=== PATIENT | female | born 1985 | race Caucasian/White ===

== ENCOUNTER 2016-12-20 04:43 | Emergency (ER) | payer BC, OTHER ==
[~2016-12-20] VITALS: Ht 152.4 cm; Wt 63.0 kg
[~2016-12-20 04:43] MED LIST: BENA25TA8 PO; PRED20 PO
[2016-12-20 04:45] VITALS: BP 126/77; PULSE 97; RESP 16; TEMP 97.7; O2SAT 100
--- NOTE | 2016-12-20 05:10 | PD ---
HPI Chief Complaint: Abdominal Pain Time Seen by Provider: 04:53 Travel History International Travel<30 days: No Contact w/Intl Traveler<30days: No Traveled to known affect area: No History of Present Illness HPI The patient is a 31 year old female who presents to the [facility] emergency department with a history of abdominal pain in the left lower quadrant that she reports began approximately 2 months ago. She reports that the pain has been coming and going, however a week ago it became more constant and more severe. She reports that the pain is like a dull aching sensation. She reports that it is worse when she goes to sleep at night. She reports that it woke her up from sound sleep prior to arrival. She reports that her menstrual cycles have been regular. She reports that her last menstrual cycle was November 23. She reports that her last gynecologic exam was one year ago. She reports that she recently moved to the area. She reports that she has a history of kidney stones, however this pain is different. She denies having any dysuria, hematuria, urinary urgency, or frequency. She denies having any vaginal discharge. She reports that she has been moving her bowels regularly. She denies having any blood in her stool. The patient reports that she has had worsening acid reflux over the last year. She reports that Tums has not been helping. The patient denies any recent fevers, cough, congestion, neck pain, chest pain, shortness of breath, vomiting, diarrhea, or neurologic symptoms. L PFS Past Medical History Narrative Medical The patient's past medical history is significant for kidney stones. Diminished Hearing: No ?: Not LMP: 11/23/16 : 1 Para: 1 Past Surgical History Narrative Surgical The patient's past surgical history is reportedly none. Social History Alcohol Use: No Tobacco Use: No Substance Use: No Allergies-Medications (Allergen,Severity, Reaction): Coded Allergies: No Known Allergies (Unverified , 12/20/16) Reported Meds & Prescriptions Reported Meds & Active Scripts Active No Active Prescriptions or Reported Medications Review of Systems Except as stated in HPI: all other systems reviewed are Neg General / Constitutional: No: Fever Eyes: No: Visual changes HENT: No: Headaches Cardiovascular: No: Chest Pain or Discomfort Respiratory: No: Shortness of Breath Gastrointestinal: Positive: Abdominal Pain, Indigestion, No: Nausea, Vomiting , Diarrhea, Hematochezia, Constipation, Changes in Bowel Habits, Loss of Appetite Genitourinary: Positive: Pelvic Pain, No: Urgency, Frequency, Dysuria, Hematuria, Flank Pain, Discharge, Vaginal Bleeding Musculoskeletal: No: Pain Skin: No Rash Neurologic: No: Weakness Psychiatric: No: Depression Endocrine: No: Polydipsia Hematologic/Lymphatic: No: Easy Bruising Physical Exam Narrative General: The patient is a well-developed well-nourished female in no acute distress. Head and Neck exam: Head is normocephalic atraumatic. Eyes: EOMI, pupils are equal round and reactive to light. Nose: Midline septum with pink mucous membranes Mouth: Dentition unremarkable. Moist mucus membranes. Posterior oropharynx is not erythematous. No tonsillar hypertrophy. Uvula midline. Airway patent. Neck: No palpable lymphadenopathy. No nuchal rigidity. No thyromegaly. Cardiovascular: Regular rate and rhythm without murmurs, gallops, or rubs. Lungs: Clear to auscultation bilaterally. No wheezes, rhonchi, or rales. Abdomen: Soft, with tenderness on palpation in the left upper and left lower quadrant of the abdomen, no tenderness on palpation of McBurney's point. No tenderness on palpation of the right upper or right lower quadrant of the abdomen. No guarding , rebound, or rigidity. Negative [place] sign. Normal bowel sounds are audible. Extremities: No clubbing, cyanosis, or edema. No calf tenderness on palpation. Back: The patient has left-sided CVA tenderness on palpation. The tenderness on palpation of the right. Neurologic Exam: Grossly nonfocal. Skin Exam: No rash noted. Intact skin that is warm and dry. Gynecologic exam: The patient was placed in the dorsal lithotomy position. Her external genitalia were examined. She had no evidence of rash or lesions. The speculum was placed into her vagina and the cervix was identified. She had a brown discharge noted that appear to be older blood. No cervical friability. On Bimanual exam: she has no cervical motion tenderness. No adnexal tenderness or prominence noted on palpation. No uterine tenderness or enlargement noted on palpation. Data Data Last Documented VS Vital Signs Date Time Temp Pulse Resp B/P Pulse Ox O2 Delivery O2 Flow Rate FiO2 12/20/16 06:21 16 12/20/16 05:15 99 Room Air 12/20/16 04:45 97.7 97 126/77 Orders Complete Blood Count With Diff (12/20/16 04:56) Comprehensive Metabolic Panel (12/20/16 04:56) C-Reactive Protein (Crp) (12/20/16 04:56) Lipase (12/20/16 04:56) Urinalysis - C+S If Indicated (12/20/16 04:56) Iv Access Insert/Monitor (12/20/16 04:56) Ecg Monitoring (12/20/16 04:56) Oximetry (12/20/16 04:56) Ed Urine Pregnancytest Poc (12/20/16 04:56) Gc And Chlamydia Pcr (12/20/16 04:56) Wet Prep Profile (12/20/16 04:56) Ct Abd/Pel W Iv Contrast(Rout) (12/20/16 05:23) Sodium Chlor 0.9% 1000 Ml Inj (Ns 1000 M (12/20/16 05:30) Ketorolac Inj (Toradol Inj) (12/20/16 05:30) Urine Culture (12/20/16 05:10) Iohexol 350 Inj (Omnipaque 350 Inj) (12/20/16 06:35) Ciprofloxacin (Cipro) (12/20/16 07:30) Metronidazole 500 Mg Inj (Flagyl 500 Mg (12/20/16 07:30) Labs Laboratory Tests Test 12/20/16 12/20/16 12/20/16 05:10 05:15 05:30 Urine Color YELLOW Urine Turbidity HAZY Urine pH 5.0 Urine Specific [place] 1.018 Urine Protein NEG mg/dL Urine Glucose (UA) NEG mg/dL Urine Ketones NEG mg/dL Urine Occult Blood MOD Urine Nitrite NEG Urine Bilirubin NEG Urine Urobilinogen LESS THAN 2.0 MG/DL Urine Leukocyte Esterase SMALL Urine RBC 6 /hpf Urine WBC 3 /hpf Urine Squamous Epithelial 3 /hpf Cells Urine Transitional Epithelial <1 /hpf Cells Urine Bacteria MOD /hpf Urine Mucus FEW /lpf Microscopic Urinalysis Comment CULTURE INDICATED White Blood Count 8.8 TH/MM3 Red Blood Count 4.53 MIL/MM3 Hemoglobin 13.7 GM/DL Hematocrit 40.8 % Mean Corpuscular Volume 90.1 FL Mean Corpuscular Hemoglobin 30.2 PG Mean Corpuscular Hemoglobin 33.6 % Concent Red Cell Distribution Width 13.6 % Platelet Count 277 TH/MM3 Mean Platelet Volume 8.4 FL Neutrophils (%) (Auto) 65.7 % Lymphocytes (%) (Auto) 25.1 % Monocytes (%) (Auto) 6.7 % Eosinophils (%) (Auto) 2.0 % Basophils (%) (Auto) 0.5 % Neutrophils # (Auto) 5.8 TH/MM3 Lymphocytes # (Auto) 2.2 TH/MM3 Monocytes # (Auto) 0.6 TH/MM3 Eosinophils # (Auto) 0.2 TH/MM3 Basophils # (Auto) 0.0 TH/MM3 CBC Comment DIFF FINAL Differential Comment Sodium Level 141 MEQ/L Potassium Level 3.7 MEQ/L Chloride Level 106 MEQ/L Carbon Dioxide Level 26.0 MEQ/L Anion Gap 9 MEQ/L Blood Urea Nitrogen 10 MG/DL Creatinine 0.88 MG/DL Estimat Glomerular Filtration 75 ML/MIN Rate Random Glucose 112 MG/DL Calcium Level 9.0 MG/DL Total Bilirubin 0.4 MG/DL Aspartate Amino Transf 16 U/L (AST/SGOT) Alanine Aminotransferase 20 U/L (ALT/SGPT) Alkaline Phosphatase 93 U/L C-Reactive Protein 1.10 MG/DL Total Protein 7.9 GM/DL Albumin 3.8 GM/DL Lipase 171 U/L Clue Cells (Wet Prep) NONE SEEN Vaginal Trichomonas (Wet Prep) NONE SEEN Vaginal Yeast (Wet Prep) NONE SEEN MDM Medical Decision Making Medical Screen Exam Complete: Yes Emergency Medical Condition: Yes Medical Record Reviewed: Yes Interpretation(s) Last Impressions Abdomen/Pelvis CT 12/20/16 0523 Signed Impressions: Service Date/Time: Tuesday, December 20, 2016 06:18 - CONCLUSION: 1. Inflammatory process adjacent to the distal descending colon. This likely relates to epiploic appendigitis. 2. 2 tiny low-density lesions involving the liver. These are to small to accurate characterize with CT but likely relate to small cysts. Todd New Jr., MD Differential Diagnosis Kidney stone, versus pyelonephritis, versus ovarian cyst, versus diverticulitis , versus colitis Narrative Course During the course of the patients emergency department visit, the patients history, examination, and differential diagnosis were reviewed with the patient. The patient had IV access obtained and blood work sent for analysis. The patient was placed on a monitor technician with oximetry and blood pressure monitoring. A [id number] test was done and negative. A CT scan of the abdomen and pelvis has been ordered. The patient was provided normal saline 1 L IV fluid bolus, Toradol 15 mg IV. The patients laboratory studies were reviewed and remarkable for a CBC that is within normal limits. CMP is remarkable for glucose 112, C-reactive protein 1.10, lipase 171, urinalysis shows moderate occult blood, rbc's 6, small leukocyte esterase with wbc's 3, moderate bacteria, culture indicated. The patient was given ciprofloxacin 500 mg by mouth 1. Radiology studies were reviewed and remarkable for a CT scan of the abdomen and pelvis that shows an inflammatory process adjacent to the distal descending colon this likely represents an epiploic appendagitis. The patient had Flagyl added onto her medication regimen. The patient will be discharged home with a prescription for Cipro and Flagyl. The patient was instructed regarding the importance of following up with her primary care physician for reexamination in the next 2 days. The patient is resting comfortably and feels better, is alert and in no distress. The patients results and examination findings were discussed with the patient. The repeat examination is unremarkable and benign. The history, exam, diagnostic testing, and current condition do not suggest any significant pathology to warrant further testing, continued ED treatment, admission, or surgical evaluation at this point. The vital signs have been stable. The patient does not have uncontrollable pain, intractable vomiting, or other significant symptoms. The patient's condition is stable and appropriate for discharge. The patient will pursue further outpatient evaluation with a primary care physician or other designated or consulting physician as indicated in the discharge instructions. The patient expressed understanding and was agreeable with this plan. Diagnosis Primary Impression: Abdominal pain Qualified Code: R10.32 - Left lower quadrant pain Additional Impressions: Epiploic appendagitis Urinary tract infection Qualified Code: N39.0 - Urinary tract infection without hematuria, site unspecified Referrals: Primary Care Physician 2 days Patient Instructions: Abdominal Pain (ED), General Instructions, Urinary Tract Infection in Women (ED) Med/Other Pt SpecificInfo: Prescription(s) given Scripts Ciprofloxacin (Cipro)500 Mg [id number] Mg PO BID 10 Days Ref 0 Prov:Danielle Chairez MD 12/20/16 Metronidazole (Flagyl)500 Mg [id number] Mg PO TID #20 TAB Ref 0 Prov:Danielle Chairez MD 12/20/16 Ibuprofen 600 Mg [id number] Mg PO Q8HR PRN (PAIN) #9 TAB Ref 0 Prov:Danielle Chairez MD 12/20/16 Disposition: 01 DISCHARGE HOME Condition: Stable Danielle Chairez MD Dec 20, 2016 05:10
[2016-12-20 05:15] VITALS: RESP 16; O2SAT 99
[2016-12-20 05:25] LABS: AUTOMATED NEUTROPHIL # 5.8 TH/MM3 (1.8-7.7); BASOPHIL % 0.5 % (0.0-2.0); EOSINOPHIL # 0.2 TH/MM3 (0-0.4); HEMATOCRIT 40.8 % (35.0-46.0); HEMO FLAGS DIFF FINAL; LYMPH % 25.1 % (9.0-44.0); LYMPHOCYTE # 2.2 TH/MM3 (1.0-4.8); MEAN CELL VOLUME 90.1 FL (80.0-100.0); MEAN CORPUSCULAR HEMOGLOBIN 30.2 PG (27.0-34.0); MEAN CORPUSCULAR HGB CONC 33.6 % (32.0-36.0); MONO % 6.7 % (0.0-8.0); NEUT % 65.7 % (16.0-70.0); PLATELET COUNT 277 TH/MM3 (150-450); RED BLOOD COUNT 4.53 MIL/MM3 (4.00-5.30); RED CELL DISTRIBUTION WIDTH 13.6 % (11.6-17.2); WHITE BLOOD COUNT 8.8 TH/MM3 (4.0-11.0)
[2016-12-20] MEDS ORDERED: SODIUM CHLOR 0.9% 1000 ML INJ 1,000 ML IV ONE (05:30)
[2016-12-20] MEDS ORDERED: KETOROLAC TROMETHAMINE 30 MG/ML (IVP) VIAL IV PUSH ONE (05:30)
[2016-12-20 05:33] LABS: BACTERIA, URINE MOD /hpf; BLOOD, URINE MOD (NEG); GLUCOSE,URINE NEG (NEG); KETONE, URINE NEG (NEG); MUCUS URINE FEW /lpf (OCC); NITRITE,URINE NEG (NEG); SQUAMOUS EPITHELIAL CELL URINE 3 /hpf (0-5); TRANSITIONAL EPI CELLS, URINE <1 /hpf; URINE COLOR YELLOW (YELLW/STRAW)
[2016-12-20 05:34] LABS: COMMENT (UR) CULTURE INDICATED; CULTURE IF INDICATED CULTURE INDICATED
[2016-12-20 05:56] LABS: ANION GAP 9 MEQ/L (5-15); AST (GOT) 16 U/L (15-37); BLOOD UREA NITROGEN 10 MG/DL (7-18); CHLORIDE 106 MEQ/L (98-107); GLOMERULAR FILTRATION RATE 75 ML/MIN (>89); POTASSIUM 3.7 MEQ/L (3.5-5.1); SODIUM (NA) 141 MEQ/L (136-145)
[2016-12-20 05:59] LABS: ALKALINE PHOSPHATASE 93 U/L (45-117); ALT (GPT) 20 U/L (10-53); TOTAL BILIRUBIN ADULT 0.4 MG/DL (0.2-1.0)
[2016-12-20] MEDS ORDERED: IOHEXOL 350 MG/ML 10 ML VIAL (for RAD DIAG) IV ONE (06:35)
--- NOTE | 2016-12-20 06:49 | RADRPT ---
EXAM DATE/TIME: 12/20/2016 06:18 [place] COMPARISON: No previous studies available for comparison. INDICATIONS : Left lower quadrant pain. IV CONTRAST: 95 cc Omnipaque 350 (iohexol) IV ORAL CONTRAST: No oral contrast ingested. RADIATION DOSE: 8.51 CTDIvol (mGy) MEDICAL HISTORY : None SURGICAL HISTORY : None. ENCOUNTER: Initial ACUITY: 1 week PAIN SCALE: 4/10 LOCATION: Left lower quadrant TECHNIQUE: Volumetric scanning of the abdomen and pelvis was performed. Using automated exposure control and ad justment of the mA and/or kV according to patient size, radiation dose was kept as low as reasonably achievable to obtain optimal diagnostic quality images. FINDINGS: LOWER LUNGS: The visualized lower lungs are clear. LIVER: Homogeneous density. 2 tiny low-density lesions involving the liver likely related to cysts. There i s no dilation of the biliary tree. No calcified gallstones. SPLEEN: Normal size without lesion. PANCREAS: Within normal limits. KIDNEYS: Normal in size and shape. There is no mass, stone or hydronephrosis. ADRENAL GLANDS: Within normal limits. VASCULAR: There is no aortic aneurysm. BOWEL/MESENTERY: There is stranding of the pericolonic mesentery involving the left lower quadrant adjacent to the dis davin descending colon. The adjacent colon is normal. I appreciate no diverticuli. No free air or free fluid. Small bowel and stomach are normal. ABDOMINAL WALL: Within normal limits. RETROPERITONEUM: There is no lymphadenopathy. BLADDER: No wall thickening or mass. REPRODUCTIVE: Within normal limits. INGUINAL: There is no lymphadenopathy or hernia. MUSCULOSKELETAL: Within normal limits for patient age. CONCLUSION: 1. Inflammatory process adjacent to the distal descending colon. This likely relates to epiploic appe ndigitis. 2. 2 tiny low-density lesions involving the liver. These are to small to accurate characterize with C T but likely relate to small cysts. Todd New Jr., MD on December 20, 2016 at 6:44 Board Certified Radiologist. This report was verified electronically.
[2016-12-20] MEDS ORDERED: IBUP-232 PO (07:22)
[2016-12-20] MEDS ORDERED: METR-1 PO (07:22)
[2016-12-20] MEDS ORDERED: CIPR-9 PO (07:22)
[2016-12-20] MEDS ORDERED: metroNIDAZOLE 500 MG INJ 100 ML IV ONE (07:30)
[2016-12-20] MEDS ORDERED: CIPROFLOXACIN 500 MG TAB PO ONE (07:30)
[2016-12-20 07:32] VITALS: BP 131/86; PULSE 78; RESP 16; O2SAT 96
[2016-12-20 07:36] LABS: CHLAMYDIA PCR NOT DETECTED (NOT DETECT); NEISSERIA PCR NOT DETECTED (NOT DETECT)
== END 2016-12-20 08:52 | disposition home or self-care (01) ==
LOC: NEPE 04:43
DX: N39.0 Urinary tract infection, site not specified (principal); B96.89 Other specified bacterial agents as the cause of diseases classified elsewhere
CPT/HCPCS: 74177; 80053; 81001; 83690; 84703; 85025; 86140; 87086; 87210; 87491; 87591; 96361; 96365; 96375; 99284; J1885; J7030; Q9967